=== PATIENT | male | born 1975 | race African-American/Black ===

== ENCOUNTER 2021-01-04 18:06 | Emergency (ER) | payer OTHER, SELFPAY ==
--- NOTE | 2021-01-04 | ECG_ITS ---
Test Reason : WEAKNESS/AMS Blood Pressure : / mmHG Vent. Rate : 072 BPM Atrial Rate : 072 BPM P-R Int : 106 ms QRS Dur : 100 ms QT Int : 398 ms P-R-T Axes : 040 057 056 degrees QTc Int : 435 ms Sinus rhythm with short MO Otherwise normal ECG When compared with ECG of 03-SEP-2013 23:01, No significant change was found Referred By: Cristine Sarmiento Electronically Signed By:ANABELLA LANGSTON
--- NOTE | ~2021-01-04 | CT_ITS ---
EXAMINATION: CT HEAD WITHOUT CONTRAST CLINICAL INFORMATION: Seizure COMPARISON: None TECHNIQUE: Contiguous axial imaging was performed from the skull base to vertex without intravenous administration of contrast. This CT examination was performed using dose optimization techniques as appropriate, variously including the following: *Automated exposure control *Adjustment of mA and/or kV according to patient size (this includes techniques or standardized protocols for targeted exams where dose is matched to indication/reason for exam; i.e. extremities or head) *Use of iterative reconstruction technique DLP: 663 mGy-cm FINDINGS: There is no evidence of acute intracranial hemorrhage or territorial infarction. No abnormal mass effect or midline shift is seen. Lucia to white matter differentiation is well preserved. No extra-axial fluid collections are identified. The ventricles are normal in size. There is no abnormal attenuation within the brain parenchyma. The osseous structures and soft tissues are normal. The mastoid air cells and visualized portions of the paranasal sinuses are well aerated. CT/CT head/brain wo con IMPRESSION: Unremarkable exam.
[2021-01-04 18:19] VITALS: BP 153/92; PULSE 78; RESP 16; TEMP 36.8; O2SAT 98; BMI 25.1
[2021-01-04 18:21] LABS: Glucose, Whole Blood 145 mg/dL (60-115)
[2021-01-04 18:46] LABS: MANUAL DIFF FLAG NO
[2021-01-04 18:49] LABS: Basophils Percent Auto 0.8 % (0-2); Eosinophils Absolute Auto 0.1 X10*3/uL (0.0-0.4); Eosinophils Percent Auto 2.2 % (0-4); Hematocrit 37.2 % (42-52); Hemoglobin 12.3 g/dl (14.0-18.0); Imm Gran Abs Auto 0.01 X10*3/uL (0.00-0.03); Imm Gran Pct Auto 0.2 % (0.0-0.4); Lymphocytes Absolute Auto 1.3 X10*3/uL (1.2-4.9); Lymphocytes Percent Auto 25.2 % (20-40); Mean Corpuscular HGB Conc 33.1 g/dl (31.0-36.0); Mean Corpuscular Hemoglobin 22.3 pg (27.0-33.0); Mean Corpuscular Volume 67.5 fL (80-98); Mean Platelet Volume 9.6 fL (9.4-12.4); Monocytes Absolute Auto 0.6 X10*3/uL (0.1-1.2); Monocytes Percent Auto 10.9 % (2-11); Neutrophils Absolute Auto 3.1 X10*3/uL (2.0-8.3); Neutrophils Percent Auto 60.7 % (45-73); Platelet Count 235 X10*3/uL (160-400); Red Blood Count 5.51 X10*6/uL (4.60-5.80); Red Cell Distribution Width 15.9 % (11.0-16.0)
--- NOTE | 2021-01-04 18:53 | ED_ITS ---
HPI - Altered Mental Status General Chief Complaint: Altered Mental Status Stated Complaint: WEAKNESS LETHARGY Time Seen by Provider: 01/04/21 18:40 History of Present Illness HPI narrative: Patient is a 45-year-old male presents today with having a possible seizure episode. Patient was seen at [facility] earlier. With another episode. These episodes are noted to be shaking subsequently followed by a postictal extremely tired state. Patient denies any urinary incontinence. There was no tongue bite. No history of the same. Patient admits to using recreational drugs PCP. Also drinks alcohol on a daily basis. Denies any other recreational drug use. No coughing or congestion or upper respiratory symptoms. No diaphoresis. Patient from home. No chest pain or shortness of breath. No trauma. Patient works as a database engineer. Related Data Allergies Allergy/AdvReac Type Severity Reaction Status Date / Time No Known Allergies Allergy Unverified 04/27/20 18:39 Review of Systems Review of Systems: Constitutional: No Weight loss, No Fever, No Chills, No Night Sweats, No Fatigue, No Malaise ENT/Mouth: No Hearing loss, No Ear Pain, No Nasal Congestion, No Sinus Pain, No Hoarseness, No sore throat, No Rhinorrhea, No Swallowing Difficulty Eyes: No Eye Pain, No Swelling, No Redness, No Foreign Body, No Discharge, No Vision Changes Cardiovascular: No Chest Pain, No SOB, No Dyspnea on Exertion, No Orthopnea, No Edema, No Palpitations Respiratory: No Cough, No Sputum, No Wheezing, No Smoke Exposure, No Dyspnea Gastrointestinal: No Nausea, No Vomiting, No Diarrhea, No Constipation, No abdominal Pain, No Hematochezia, No Melena Genitourinary: no irregular bleeding, No Dysuria, No Urinary Frequency, No Hematuria, No Urinary Incontinence, No Urgency, No Flank Pain, No Urinary Flow Changes, No Hesitancy Musculoskeletal: No joint pain, No Myalgias, No Joint Swelling Skin: No Skin Lesions, No rash Neuro: No Weakness, No Numbness, No Paresthesias, No Loss of Consciousness, No Dizziness, No Headache Psych: No Anxiety/Panic, No Depression, No SI/HI/AH/VH, No Social Issues, Heme/Lymph: No Bruising, No Bleeding,No Lymphadenopathy Endocrine: No Polyuria, No Polydipsia, No Temperature Intolerance [facility] Past Medical History Medical History Seizure Social History Social History Advance Directives: No Advance Directives Information Provided: No Physical Exam Vital Signs: Vital Signs: Last Vital Signs Temp 98.2 F 01/04/21 18:19 Pulse 78 01/04/21 18:19 Resp 16 01/04/21 18:19 BP 153/92 H 01/04/21 18:19 Pulse Ox 98 01/04/21 18:19 Body Mass Index 25.1 Appearance: Alert. Oriented X3. No acute distress. Eyes: Pupils equal, round and reactive to light. ENT: Pharynx normal. Neck: Normal inspection. Neck supple. No lymph nodes noted. No crepitus CVS: Normal heart rate and rhythm. Pulses normal. Normal S1 and S2 Respiratory: No respiratory distress. Breath sounds normal. No Wheezing. No rales Abdomen: Soft and nontender. No rigidity. No distention. good BS x4 Skin: Skin warm and dry. Normal skin color. Normal skin turgor. Extremities: No lower extremity edema. Neurovascular intact to all extremities. No Lacerations. No Rash Neuro: Oriented X 3. No motor deficit. No sensory deficit. Moving all extermities. No slurred speech. Cranial nerves 2-12 intact. MDM - Altered Mental Status MDM Narrative Medical decision making narrative: Patient's case also discussed with patient's family. She actually saw the events. Patient was actually talking to her at the time when he had this episode. Patient's tremor was not a jerking motion. It was rather a fine movement. There is question of patient used PCP this was o btained from nursing. Patient did use marijuana from time to time. Patient has regular alcohol use. Claims that the last drink was last night. Patient's alcohol level was 0. Patient's old record was obtained from [facility]. The thought there was patient did not have a seizure episode bed rather had an episode with alcohol. Patient is currently in stable condition. Unsure patient had a seizure episode today. Will have patient follow-up on an outpatient basis. Will ask patient to have a seizure precaution any way. Patient's risk of seizures low at this point. [place] patient was awake when he was shaking this is unlike a generalized tonic-clonic seizure. Patient has a hi story of polysubstance abuse. Question related to that. Never last will be careful and have patient follow-up on an outpatient basis. Medical Records Attestation: I reviewed the patient's medical records. Lab Data Attestation: I reviewed the patient's lab results. Result diagrams: 01/04/21 18:40 01/04/21 18:40 Labs: Lab Results 01/04/21 01/04/21 01/04/21 Range/Units 18:17 18:40 18:40 WBC 5.0 (4.8-10.8) X10*3/uL RBC 5.51 (4.60-5.80) X10*6/uL Hgb 12.3 L (14.0-18.0) g/dl Hct 37.2 L (42-52) % MCV 67.5 L (80-98) fL MCH 22.3 L (27.0-33.0) pg MCHC 33.1 (31.0-36.0) g/dl RDW 15.9 (11.0-16.0) % Plt Count 235 (160-400) X10*3/uL MPV 9.6 (9.4-12.4) fL Immature Gran % (Auto) 0.2 (0.0-0.4) % Neut % (Auto) 60.7 (45-73) % Lymph % (Auto) 25.2 (20-40) % [place] % (Auto) 10.9 (2-11) % Eos % (Auto) 2.2 (0-4) % Baso % (Auto) 0.8 (0-2) % Lymph # (Auto) 1.3 (1.2-4.9) X10*3/uL [place] # (Auto) 0.6 (0.1-1.2) X10*3/uL Eos # (Auto) 0.1 (0.0-0.4) X10*3/uL Baso # (Auto) 0.0 (0.0-0.2) X10*3/uL Abs Immat Gran (auto) 0.01 (0.00-0.03) X10*3/uL Absolute Neuts (auto) 3.1 (2.0-8.3) X10*3/uL Absolute Nucleated RBC 0.000 (0.0-0.012) X10*3/uL Nucleated RBC % (auto) 0.0 (0.0-0.2) /100WBC Hold Purple Top Sodium Cancelled Potassium Cancelled Chloride Cancelled Carbon Dioxide Cancelled Anion Gap Cancelled BUN Cancelled Creatinine Cancelled Estim Creat Clear Calc Cancelled Estimated GFR Cancelled POC Glucose 145 H (60-115) mg/dL Random Glucose Cancelled Calcium Cancelled Total Bilirubin Cancelled AST Cancelled ALT Cancelled Alkaline Phosphatase Cancelled Total Protein Cancelled Albumin Cancelled Lipase (8-78) U/L Ethyl Alcohol mg/dL 01/04/21 01/04/21 01/04/21 Range/Units 18:40 18:40 18:40 WBC (4.8-10.8) X10*3/uL RBC (4.60-5.80) X10*6/uL Hgb (14.0-18.0) g/dl Hct (42-52) % MCV (80-98) fL MCH (27.0-33.0) pg MCHC (31.0-36.0) g/dl RDW (11.0-16.0) % Plt Count (160-400) X10*3/uL MPV (9.4-12.4) fL Immature Gran % (Auto) (0.0-0.4) % Neut % (Auto) (45-73) % Lymph % (Auto) (20-40) % [place] % (Auto) (2-11) % Eos % (Auto) (0-4) % Baso % (Auto) (0-2) % Lymph # (Auto) (1.2-4.9) X10*3/uL [place] # (Auto) (0.1-1.2) X10*3/uL Eos # (Auto) (0.0-0.4) X10*3/uL Baso # (Auto) (0.0-0.2) X10*3/uL Abs Immat Gran (auto) (0.00-0.03) X10*3/uL Absolute Neuts (auto) (2.0-8.3) X10*3/uL Absolute Nucleated RBC (0.0-0.012) X10*3/uL Nucleated RBC % (auto) (0.0-0.2) /100WBC Hold Purple Top SEE NOTE Sodium 137 Potassium 3.7 Chloride 102 Carbon Dioxide 25 Anion Gap 14 BUN 11 Creatinine 0.96 Estim Creat Clear Calc 79.0 Estimated GFR > 60 POC Glucose (60-115) mg/dL Random Glucose 116 H Calcium 9.3 Total Bilirubin 0.6 AST 34 ALT 17 Alkaline Phosphatase 73 Total Protein 7.5 Albumin 4.3 Lipase 51 (8-78) U/L Ethyl Alcohol < 10 mg/dL ECG Data ECG #1: Interpretation: EKG showed a sinus pattern heart rate is 70 LA QRS QT within normal limits there is no evidence for arrhythmia noted Discharge Plan Discharge Clinical Impression: Altered mental status, Seizure Patient Disposition: Home, Self-Care Instructions: Epilepsy (ED), Alcohol Withdrawal (ED) Referrals: Physician,Unknown [Primary Care Provider] - 2 days
[2021-01-04 19:11] LABS: Ethanol < 10 mg/dL
[2021-01-04 19:13] LABS: Alanine Aminotransferase 17 U/L (0-40); Albumin Level 4.3 g/dL (3.5-5.0); Alkaline Phosphatase 73 U/L (39-117); Anion Gap 14 (12-20); Aspartate Amino Transferase 34 U/L (5-37); Bilirubin Total 0.6 mg/dL (0.0-1.0); Blood Urea Nitrogen 11 mg/dL (9-16); Calcium 9.3 mg/dL (8.4-10.2); Carbon Dioxide 25 mmol/L (22-29); Chloride 102 mmol/L (96-108); Estimated Glomerular Filt Rate > 60; Glucose Random 116 mg/dL (60-115); Lipase 51 U/L (8-78); Potassium 3.7 mmol/L (3.3-5.1); Sodium 137 mmol/L (135-145); Total Protein 7.5 g/dL (6.5-8.0)
[2021-01-04] MEDS: levETIRAcetam in NaCl (iso-os) 500 MG/100 ML PIGGYBACK 200 MG IV (19:18)
== END 2021-01-04 20:44 | disposition home or self-care (01) ==
PROVIDERS: Emergency Provider Emergency Medicine Emergency Medical Services
DX: R56.9 Unspecified convulsions (principal); R41.82 Altered mental status, unspecified; R25.1 Tremor, unspecified; F10.239 Alcohol dependence with withdrawal, unspecified; Y90.0 Blood alcohol level of less than 20 mg/100 ml
CPT/HCPCS: 36415; 70450; 80053; 82077; 82947; 83690; 85025; 93005; 96360; 99283; 99284; J1953

== ENCOUNTER 2021-02-24 21:53 | Emergency (ER) | payer OTHER, SELFPAY ==
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
[2021-02-24 22:00] VITALS: BP 146/97; BP 172/104; PULSE 101; PULSE 104; RESP 22; TEMP 36.4; O2SAT 95; O2SAT 97; BMI 28.3
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
[2021-02-24 22:36] LABS: MANUAL DIFF FLAG NO
[2021-02-24 22:39] LABS: Basophils Absolute Auto 0.1 X10*3/uL (0.0-0.2); Basophils Percent Auto 1.4 % (0-2); Eosinophils Absolute Auto 0.2 X10*3/uL (0.0-0.4); Eosinophils Percent Auto 3.3 % (0-4); Hematocrit 38.7 % (42-52); Hemoglobin 12.6 g/dl (14.0-18.0); Imm Gran Abs Auto 0.02 X10*3/uL (0.00-0.03); Imm Gran Pct Auto 0.4 % (0.0-0.4); Lymphocytes Absolute Auto 1.8 X10*3/uL (1.2-4.9); Lymphocytes Percent Auto 36.6 % (20-40); Mean Corpuscular HGB Conc 32.6 g/dl (31.0-36.0); Mean Corpuscular Hemoglobin 22.5 pg (27.0-33.0); Mean Corpuscular Volume 69.1 fL (80-98); Mean Platelet Volume 9.1 fL (9.4-12.4); Monocytes Absolute Auto 0.4 X10*3/uL (0.1-1.2); Neutrophils Absolute Auto 2.4 X10*3/uL (2.0-8.3); Neutrophils Percent Auto 50.3 % (45-73); Platelet Count 274 X10*3/uL (160-400); Red Cell Distribution Width 16.6 % (11.0-16.0); White Blood Count 4.9 X10*3/uL (4.8-10.8)
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
--- NOTE | 2021-02-24 22:50 | PC.NURSE ---
Jesús CRABTREE (SISTER) [phone], CALL WHEN PERMISSION GIVEN FOR AN UPDATE.
[2021-02-24 22:55] LABS: COVID-19 Test Negative (Negative)
[2021-02-24 22:56] LABS: Ethanol 237 mg/dL
[2021-02-24 23:01] LABS: Alanine Aminotransferase 24 U/L (0-40); Albumin Level 4.7 g/dL (3.5-5.0); Alkaline Phosphatase 69 U/L (39-117); Anion Gap 17 (12-20); Aspartate Amino Transferase 39 U/L (5-37); Bilirubin Direct 0.2 mg/dL (0.0-0.5); Bilirubin Total 0.4 mg/dL (0.0-1.0); Blood Urea Nitrogen 8 mg/dL (9-16); Carbon Dioxide 22 mmol/L (22-29); Chloride 105 mmol/L (96-108); Creatinine Clr Calc Pharmacy 86.2; Estimated Glomerular Filt Rate > 60; Glucose Random 99 mg/dL (60-115); Lipase 42 U/L (8-78); Potassium 4.3 mmol/L (3.3-5.1); Sodium 140 mmol/L (135-145)
[2021-02-24] MEDS: iohexoL 350 MG/ML 100 ML INFUS..BTL 85 ML IV (23:37)
[2021-02-25 01:20] VITALS: BP 102/59; PULSE 93; RESP 18; O2SAT 96
== END 2021-02-25 02:31 | disposition home or self-care (01) ==
PROVIDERS: Nurse Practitioner Family; Emergency Provider Student in an Organized Health Care Education/Training Program; PCP Internal Medicine
DX: S06.0X1A Concussion with loss of consciousness of 30 minutes or less, initial encounter (principal); F10.129 Alcohol abuse with intoxication, unspecified; Y90.7 Blood alcohol level of 200-239 mg/100 ml; Y04.2XXA Assault by strike against or bumped into by another person, initial encounter; Y93.9 Activity, unspecified; Y92.410 Unspecified street and highway as the place of occurrence of the external cause; Y99.9 Unspecified external cause status; Z20.822 Contact with and (suspected) exposure to COVID-19
CPT/HCPCS: 36415; 70450; 70486; 71250; 72125; 74177; 80048; 80076; 82077; 83690; 85025; 85730; 87635; 93005; 99285; Q9967

== ENCOUNTER 2024-07-11 09:42 | Emergency (ER) | payer OTHER, SELFPAY ==
[2024-07-11 09:47] VITALS: BP 158/100; PULSE 82; O2SAT 98
--- NOTE | 2024-07-11 09:59 | ED_ITS ---
HPI - Psych General Stated Complaint: PCP USE THIS AM,CALM/COOP PER EMS Source: patient, EMS and old records reviewed Mode of arrival: EMS Limitations: no limitations History of Present Illness ED Provider: Mauro HPI Narrative: 49 yo male PMH of seizures who used ETOH and PCP this AM - neighbor called about his PCP use but no SI, no trauma, calm and cooperative states he uses PCP all the time and feels fine. He does not want to be here, he is on the phone with his cousin trying to figure out a ride he is alert and oriented x 3 and does not appear under the influence. No seizures reported MD complaint: substance abuse Onset (ago): year(s) Duration: intermittent History of same: Yes Relieving factors: none Exacerbating factors: alcohol and drug use Context: recent alcohol abuse and recent drug abuse Associated psychiatric symptoms: none Associated symptoms: denies other symptoms Treatments prior to arrival: none Related Data Allergies Allergy/AdvReac Type Severity Reaction Status Date / Time No Known Allergies Allergy Unverified 07/11/24 10:19 Review of Systems Review of Systems: Constitutional : No Fever, No Chills ENT/Mouth : No Ear Pain, No Nasal Congestion, No sore throat Eyes: No Eye Pain, No Swelling, No Redness Cardiovascular : No Chest Pain, No SOB Respiratory : No Cough, No Sputum, No Dyspnea Gastrointestinal : No Nausea, No Vomiting, No Diarrhea, No Hematochezia, No Melena Genitourinary : No Dysuria, No Urinary Frequency, No Hematuria Musculoskeletal : No Myalgias Skin : No Skin Lesions, No rash Neuro : No Weakness, No Numbness, No Paresthesias, No Dizziness, No Headache Psych : no Anxiety, no Depression, no SI/HI All other systems reviewed and are negative [facility] Past Medical History Attestation statement: The following information was validated with the patient. Source: old records reviewed Medical History Seizure Social History Social History Alcohol intake: current Alcohol intake frequency: 3 or more drinks per day Alcohol type: beer, wine and hard liquor Patient Tobacco Use Status: Current everyday Tobacco user Substance Use Type: Amphetamines, [employer] Drugs, Crack/Cocaine, Hallucinogens, Marijuana and Unknown Physical Exam Vital Signs: Appearance: Alert. Oriented X3. No acute distress. Eyes: Pupils equal, round and reactive to light. no nystagmus ENT: Pharynx normal. atraumatic Neck: Normal inspection. Neck supple. CVS: Normal heart rate and rhythm. Pulses normal. Respiratory: No respiratory distress. Breath sounds normal. Abdomen: Soft and nontender. Skin: Skin warm and dry. Normal skin color. Normal skin turgor. Extremities: No lower extremity edema. No calf ttp Neuro: Oriented X 3. No motor deficit. No sensory deficit. Medical Decision Making Medical Decision Making [facility] Narrative: 49 yo male with PMH of seizures but no seizures reported and states he used PCP and ETOH recreationally - he denies SI/HI has no trauma he does not want detox and he is up and asking to go. He is here after neighbor called 911 about his PCP use this AM though no destruction reported or known. Differential Diagnosis Differential Diagnoses: The differential diagnosis associated with the presentation includes drug use, seizure Admission/Observation Consideration of admission/observation: Escalation of care including admission/observation considered patient is alert and oriented x 3, atraumatic head, GCS 15 he refuses to stay at this time he can DC home has no SI does not want detox Independent Historian Clinical information obtained from an independent historian. History obtained from or confirmed by: EMS Discharge Plan Discharge Clinical Impression: Drug abuse Patient Disposition: Home, Self-Care Instructions: Polysubstance Abuse (ED) Additional Instructions: return for any worsening symptoms or concerns Print Language: Trinidadian
[2024-07-11 10:12] VITALS: BP 124/82; PULSE 87; RESP 16; O2SAT 97; BMI 22.3
[2024-07-11 10:20] VITALS: BP 124/82; PULSE 87; RESP 16; TEMP 36.6; O2SAT 97
--- NOTE | 2024-07-11 10:32 | PC.NURSE ---
Pt is brought to ED today via EMS from home. Pt reports using PCP and drinking 1 beer this morning and is unclear why he is here. Initial assessment: Pt is A&Ox3, VSS, afebrile. Pt denies any pain, n/v, PERRY. Pt reports issues with constipation--unsure of last BM date. Pt calm and cooperative Pt seen by Dr. Stallworth and set for discharge and Pt expresses eagerness to leave. Upon handing Pt discharge paperwork he reports feeling hot Pt expressed uncertainty if he would like to leave or stay int he ED at this time. Pt then wanders to a ramires stretcher and proceeds to lay down. Pt redirected to ED 16 and provided with gingerale. Pt still unsure if he would like to stay but encouraged to lay down and resting but remains sitting upright on end of stretcher. Security staff walks by and Pt becomes social and interactive, then asks to use the bathroom to attempt to have a BM. Pt also asks about getting something to promote BMs. Will report back to Dr. Stallworth.
[2024-07-11] MEDS: Lactulose 20 GM/30 ML SOLUTION PO (10:48)
--- NOTE | 2024-07-11 10:48 | PC.NURSE ---
Pt reports no success with BM attempt. Lactulose ordered and given per OCT.
--- NOTE | 2024-07-11 11:37 | PC.NURSE ---
Pt continues to rest quietly on chair in room. This RN, cooler room worker, and Biological Technician collaborating on ride coordination for Pt.
--- NOTE | 2024-07-11 12:32 | PC.NURSE ---
Pt remains in ED 16H resting queity and using phone. Pt uses the bathroom and when returns reports he has had a BM. Pt wishes to leave at this time.
[2024-07-11 12:41] VITALS: BP 00/00; PULSE 0; RESP 0; TEMP -17.7; TEMP 0
== END 2024-07-11 12:42 | disposition home or self-care (01) ==
LOC: HO.ED 10:28
PROVIDERS: Emergency Provider Emergency Medicine
DX: F16.10 Hallucinogen abuse, uncomplicated (principal); F17.210 Nicotine dependence, cigarettes, uncomplicated; R40.2410 Glasgow coma scale score 13-15, unspecified time; Z79.899 Other long term (current) drug therapy
CPT/HCPCS: 99284